=== PATIENT | female | born 1955 | race Caucasian/White ===

== ENCOUNTER 2018-02-03 10:53 | Day surgery (SDC) | payer BC, OTHER ==
[2018-02-01 12:12] LABS: APPEARANCE,URINE SLIGHTLY-CLOUDY; BILIRUBIN,URINE NEGATIVE (NEGATIVE); GLUCOSE, URINE NEGATIVE (NEGATIVE); KETONES,URINE NEGATIVE (NEGATIVE); LEUKOCYTE ESTERASE,URINE NEGATIVE (NEGATIVE); NITRITE,URINE NEGATIVE (NEGATIVE); PROTEIN,URINE NEGATIVE (NEGATIVE); UROBILINOGEN,URINE NEGATIVE mg/dL (<2.0)
[2018-02-01 12:13] LABS: HEMOGLOBIN 12.4 g/dL (12.0-15.5); MEAN CORPUSCULAR HEMOGLOBIN 32.8 pg (27.0-33.4); MEAN CORPUSCULAR HGB CONC 33.6 g/dL (32.0-36.0); MEAN CORPUSCULAR VOLUME 98 fl (80-97); PLATELET COUNT 345 10^3/uL (150-450); RED BLOOD COUNT 3.78 10^6/uL (3.72-5.28); RED CELL DISTRIBUTION WIDTH 12.7 % (11.5-14.0); WHITE BLOOD COUNT 6.4 10^3/uL (4.0-10.5)
--- NOTE | 2018-02-01 12:18 | RADIOLOGY REPORT (SQ) ---
EXAM DESCRIPTION: CHEST PA/LATERAL COMPLETED DATE/TIME: 02/01/2018 11:45 am REASON FOR STUDY: PRE-OP COMPARISON: None. EXAM PARAMETERS: NUMBER OF VIEWS: two views TECHNIQUE: Digital Frontal and Lateral radiographic views of the chest acquired. RADIATION DOSE: NA LIMITATIONS: none FINDINGS: LUNGS AND PLEURA: No opacities, masses or pneumothorax. No pleural effusion. MEDIASTINUM AND HILAR STRUCTURES: No masses or contour abnormalities. HEART AND VASCULAR STRUCTURES: Heart normal size. No evidence for failure. BONES: No acute findings. HARDWARE: None in the chest. OTHER: No other significant finding. IMPRESSION: NO SIGNIFICANT RADIOGRAPHIC FINDING IN THE CHEST. TECHNICAL DOCUMENTATION: JOB ID: [id number] [employer]- All Rights Reserved Reading location - IP/workstation name: [email or web address]
[2018-02-01 12:19] LABS: COLOR,URINE STRAW
[2018-02-01 12:34] LABS: ANION GAP 11 (5-19); BLOOD UREA NITROGEN 27 mg/dL (7-20); CALCIUM 10.1 mg/dL (8.4-10.2); CARBON DIOXIDE 31 mmol/L (22-30); CHLORIDE 90 mmol/L (98-107); GLUCOSE 88 mg/dL (75-110); SODIUM 132.2 mmol/L (137-145)
[2018-02-01 12:58] LABS: POTASSIUM 6.1 mmol/L (3.6-5.0)
--- NOTE | 2018-02-01 13:10 | EKG REPORT ---
SEVERITY:- OTHERWISE NORMAL ECG - SINUS RHYTHM LEFT AXIS DEVIATION : Confirmed by: Manan Corbett MD 01-Feb-2018 13:09:21
[~2018-02-03 10:53] MED LIST: CEFAZOLIN 2 GM/D5W RTU 2 GM/50 ML RTUPB IV PRN; LACTATED RINGERS 1000 ML IV PRN; LIDOCAINE 0.5% INJ-PF (5 MG/ML) 50 ML SDV SUBCUT PRN; SUCCINYLCHOLINE CHLORIDE INJ 200 MG/10 ML VIAL ONE
[2018-02-03] MEDS ORDERED: LIDOCAINE 1% INJ-PF (10 MG/ML) 30 ML SDV ONE (11:10)
[2018-02-03] MEDS ORDERED: BUPIVACAINE HCL 0.5 % INJ/PF 30 ML SDV ONE (11:10)
[2018-02-03] MEDS ORDERED: MIDAZOLAM 2 MG/2 ML INJ ONE ×2 (12:25→12:51)
[2018-02-03] MEDS ORDERED: DEXAMETHASONE SOD PHOSPHATE INJ 4 MG/1 ML VIAL ONE (12:25)
[2018-02-03] MEDS ORDERED: ONDANSETRON HCL INJ/PF 4 MG/2 ML SDV ONE (12:25)
[2018-02-03] MEDS ORDERED: KETOROLAC TROMETHAMINE 60 MG/2 ML SDV ONE (12:25)
[2018-02-03] MEDS ORDERED: FENTANYL CITRATE INJ/PF 100 MCG/2 ML AMPUL ONE (12:25)
[2018-02-03] MEDS ORDERED: PROPOFOL INJ 200 MG/20 ML VIAL IV ONE (12:26)
[2018-02-03] MEDS ORDERED: ACETAMINOPHEN 1,000 MG/100 ML RTUPB IV ONE (12:26)
[2018-02-03] MEDS ORDERED: CEFAZOLIN INJ 1 GM VIAL ONE (13:13)
[2018-02-03] MEDS ORDERED: ONDANSETRON HCL INJ/PF 4 MG/2 ML SDV IV PRN (13:44)
[2018-02-03] MEDS ORDERED: MORPHINE SULFATE 10 MG/ML INJ IV PRN ×2 (13:44→15:45)
[2018-02-03] MEDS ORDERED: FENTANYL CITRATE INJ/PF 100 MCG/2 ML AMPUL IV PRN ×3 (13:44)
[2018-02-03] MEDS ORDERED: DIPHENHYDRAMINE HCL 50 MG/ML VIAL IV PRN (13:44)
[2018-02-03] MEDS ORDERED: OXYCODONE-ACETAMINOPHEN 5-325 MG TABLET PO PRN ×3 (13:44→15:45)
[2018-02-03] MEDS ORDERED: PROMETHAZINE HCL INJ 25 MG/1 ML VIAL IV PRN ×2 (13:44)
[2018-02-03] MEDS ORDERED: MEPERIDINE HCL/PF INJ 25 MG/1 ML DISP.SYRIN IV PRN (13:44)
[2018-02-03] MEDS ORDERED: HYDRALAZINE HCL INJ/PF 20 MG/1 ML SDV ONE (14:01)
[2018-02-03] MEDS ORDERED: LIDOCAINE 2%/EPINEPHRINE INJ 20 ML VIAL ONE (15:45)
[2018-02-03] MEDS ORDERED: ROPIVACAINE HCL 0.5% INJ/PF (5 MG/1 ML) 30 ML SDV ONE (15:46)
--- NOTE | 2018-02-03 15:48 | Discharge Summary ---
Discharge Summary (SDC) - Discharge Final Diagnosis: Right olecranon fracture Condition: Good Treatment or Instructions: Schedule Follow Up w/ Dr. Kwadwo Tuttle @ [facility] to be seen in 10-14 days or as scheduled [place]: [place]: [place]: Ice and elevate Keep splint clean/dry/intact. If your fingers become numb please unwrap the Christian wrap but leave the splint in place, if the sensation does not return within 30 minutes please return to the emergency department. May begin finger range of motion attempting to make full fist. Please use ibuprofen (Motrin or Advil) 600-800 mg every 8 hours as needed for pain or fever DO NOT TAKE w/ TORADOL may use once TORADOL complete. You may also use acetaminophen (Tylenol) 1000 mg every 4-6 hours as needed for pain or fever. Please be aware that many medications contain acetaminophen, do not exceed a total of 1000 mg of acetaminophen every 6 hours. If ibuprofen and acetaminophen are not sufficient for your pain you may take the Percocet/Bowman. Please be aware that the Percocet/Bowman does contain Tylenol. Stool softener of choice when on pain medication. Prescriptions: Ketorolac Tromethamine [Toradol 10 mg Tablet] 10 mg PO Q6HP PRN #15 tablet PRN Reason: Oxycodone HCl [Oxycontin Sr 10 mg Tablet] 10 mg PO BID PRN #12 tab.sr.12h PRN Reason: Oxycodone HCl/Acetaminophen [Percocet 5-325 mg Tablet] 1 tab PO Q6 PRN #25 tab PRN Reason: Referrals: ENID MOORE MD [Primary Care Provider] - Discharge Diet: As Tolerated Respiratory Treatments at Home: Deep Breathing/Coughing Discharge Activity: No Lifting Over 10 Pounds, No Lifting/Push/Pulling Report the Following to Your Physician Immediately: Fever over 101 Degrees, Unusual Bleeding, Redness, Swelling, Warmth, Increased Soreness
[2018-02-03] MEDS ORDERED: LIDOCAINE 2% INJ (20 MG/ML) 20 ML MDV ONE (15:49)
--- NOTE | 2018-02-03 15:56 | RADIOLOGY REPORT (SQ) ---
EXAM DESCRIPTION: ELBOW LEFT AP/LATERAL; NO CHG FLUORO COMPLETED DATE/TIME: 02/03/2018 3:24 pm REASON FOR STUDY: REVISION LEFT ELBOW ASST WITH FLUORO IN OR S52.022A DISP FX OF OLECRAN PRO W/O IN TARTIC EXTN LEFT ULNA, COMPARISON: None. FLUOROSCOPY TIME: 0.2 minutes 3 digital C-arm images saved to PACS. TECHNIQUE: Intra-operative images acquired during surgical procedure to evaluate progress. NUMBER OF IMAGES: 3 digital C-arm images LIMITATIONS: None. FINDINGS: Intra procedural imaging and fluoro during hardware removal from the left proximal ulna. Please see the operative report for further details IMPRESSION: Intra procedural imaging fluoro COMMENT: Quality ID [id number]: Final reports for procedures using fluoroscopy that document radiation exp osure indices, or exposure time and number of fluorographic images (if radiation exposure indices are not available) Please consult full operative report of the attending physician for description of the procedure. TECHNICAL DOCUMENTATION: JOB ID: [id number] [employer]- All Rights Reserved Reading location - IP/workstation name: [email or web address]
--- NOTE | 2018-02-03 15:56 | RADIOLOGY REPORT (SQ) ---
EXAM DESCRIPTION: ELBOW LEFT AP/LATERAL; NO CHG FLUORO COMPLETED DATE/TIME: 02/03/2018 3:24 pm REASON FOR STUDY: REVISION LEFT ELBOW ASST WITH FLUORO IN OR S52.022A DISP FX OF OLECRAN PRO W/O IN TARTIC EXTN LEFT ULNA, COMPARISON: None. FLUOROSCOPY TIME: 0.2 minutes 3 digital C-arm images saved to PACS. TECHNIQUE: Intra-operative images acquired during surgical procedure to evaluate progress. NUMBER OF IMAGES: 3 digital C-arm images LIMITATIONS: None. FINDINGS: Intra procedural imaging and fluoro during hardware removal from the left proximal ulna. Please see the operative report for further details IMPRESSION: Intra procedural imaging fluoro COMMENT: Quality ID [id number]: Final reports for procedures using fluoroscopy that document radiation exp osure indices, or exposure time and number of fluorographic images (if radiation exposure indices are not available) Please consult full operative report of the attending physician for description of the procedure. TECHNICAL DOCUMENTATION: JOB ID: [id number] [employer]- All Rights Reserved Reading location - IP/workstation name: [facility] [email or web address]
--- NOTE | 2018-02-03 16:03 | Operative Report ---
Operative Report DATE OF SURGERY: 02/03/18 PREOPERATIVE DIAGNOSIS: Failed olecranon fracture ORIF POSTOPERATIVE DIAGNOSIS: Same OPERATION: Hardware removal right elbow with excision of olecranon, triceps tendon advancement/repair COMPLICATIONS: None ESTIMATED BLOOD LOSS: 25 cc PROCEDURE: Indication for above procedure: 62-year-old female who sustained a fall resulting in a olecranon fracture. She underwent open reduction internal fixation unfortunately she then had a repeat fall and x-rays demonstrate loss of fixation. At that point we discussed treatment options including operative versus nonoperative intervention operative treatment including revision ORIF versus excision with tendon repair. After discussing risks and benefits of both patient elected to proceed with operative intervention. Procedure In Detail: Patient was seen and evaluated in the preoperative holding area. T the right upper extremity was initialized and marked. Patient received 2g of Ancef IV for bacterial prophylaxis. Patient was taken back to the operative room where transferred to the operative table and placed under general anesthesia. Once they were adequately anesthetized a nonsterile tourniquet was placed on the upper extremity. Patient was placed in the lateral position. Bilateral lower extremities carefully padded and axillary roll placed. Cervical spine placed in neutral position. A surgical team debriefing was performed ensuring all instrumentation was available, the surgical procedure was discussed with possible concerns reviewed. The upper extremity was prepped with chlorhexidine and draped in a sterile fashion. A timeout was done identifying correct patient, procedure and extremity everyone in attendance agree with this and verbalized no concerns. The extremity was exsanguinated the tourniquet was inflated to 250 mmHg. Previous skin incision was then opened. There was significant scarring and adhesions to the underlying tendon and soft tissue. Blunt dissection was performed to isolate the triceps tendon. The ulnar nerve was identified and a vessel loop placed. The plate was identified and removed successfully. The remaining 2 K wires were removed as well. Any remaining FiberWire excised. The distal fracture line was isolated with a 15 blade. The fracture fragments were notably scarred into the soft tissue in a proximal direction. The remaining ulna was debrided to expose the underlying cortical and cancellus bone. The triceps tendon was then freed from the underlying distal humerus and skin. To provide adequate excursion. The remaining olecranon fragment was then reduced and held with 2 K wires directed in an anterior direction. This did provide fixation. A 18-gauge wire was then placed through transverse colon along the olecranon shaft in a [id number] placed. This was then tightened and cut. Unfortunately during tensioning of the [id number] dental wires cut through the bone resulting in further comminution thus the construct was removed. After removal of the construct C- arm fluoroscopy was obtained which demonstrated stability of the elbow there is no evidence of instability despite lack of olecranon bony support decision was then made to proceed with triceps advancement. Small fragments of cancellous bone were left attached to the triceps to provide bone to bone healing. With a #2 FiberWire for Riya were placed within the triceps tendon. With utilizing a 2.0 mm drill bit and oblique hole was placed from the distal olecranon into the ulnar shaft and a suture passer shuttled the far radial suture advancing it from radial to ulnar. Similarly an additional oblique drill tunnel was placed in the 4 ulnar suture passed from ulnar to radial. 2 additional transversed bone tunnels were placed and remaining sutures passed and secured with the elbow in full extension. Ulnar nerve was protected during closure of the fascia. The triceps repair was then reinforced with 0 Vicryl suture. Elbow range of motion at completion was 0 degrees - 60 degrees without tension. Wound was then copiously irrigated with normal saline. The anconeus fascia was reapproximated to the fascia of the FCU providing further coverage. Final C-arm fluoroscopy was obtained confirming maintained reduction of the elbow without evidence of subluxation or dislocation. Tourniquet was then deflated any peripheral bleeding was controlled with bipolar cautery. Subcutaneous tissue closed with interrupted 4-0 Monocryl suture. Skin was closed with jonas. Acticoat placed. Wound was dressed with 4 x 4's ABD patient was placed in a splint maintaining 45 degrees of extension. Sponge counts, instrument counts, needle counts counts were correct. Patient was then awoken from anesthesia. Transferred from the operating room table to the operating room stretcher. There was no intraoperative complications patient tolerated procedure well stable to PACU. Postop plan: Patient follow-up in the office in 2 weeks at which point she will be transition to a hinged elbow brace. At 4 weeks postop we will begin range of motion exercises from 30 degrees to 60 degrees. Will begin active assist range of motion increasing 10 degrees/week with goal of achieving 90 degrees of flexion at week 8 and advancing as tolerated.
[2018-02-03 19:32] VITALS: BP 124/66
== END 2018-02-03 18:40 | disposition home or self-care (01) ==
LOC: OROUT 10:53
PROVIDERS: ATTEND Orthopaedic Surgery
DX: S52.022A Displaced fracture of olecranon process without intraarticular extension of left ulna, initial encounter for closed fracture (principal); W19.XXXA Unspecified fall, initial encounter; Z88.5 Allergy status to narcotic agent; Z79.899 Other long term (current) drug therapy; M06.9 Rheumatoid arthritis, unspecified; I10 Essential (primary) hypertension; E11.9 Type 2 diabetes mellitus without complications; M25.522 Pain in left elbow; Z86.14 Personal history of Methicillin resistant Staphylococcus aureus infection; M65.821 Other synovitis and tenosynovitis, right upper arm; Z01.818 Encounter for other preprocedural examination
CPT/HCPCS: 20680; 24685; 24341; 93005; 36415 ×2; 84132; 85027; 80048; 81001; 71046; 73070; 93010; C1713; J2795; J2250; J3490 ×2; J0690; J1100; J1885; J3010; J0360; J0330; J2405; J2704; J0131; 01740